=== PATIENT | male | born 1990 | race Caucasian/White ===

== ENCOUNTER 2020-01-06 15:26 | Emergency (ER) | payer OTHER ==
[~2020-01-06] VITALS: Ht 177.8 cm; Wt 83.9 kg
[2020-01-06 16:29] VITALS: BP 141/86
== END 2020-01-06 17:30 | disposition home or self-care (01) ==
LOC: ER 15:26
DX: S39.012A Strain of muscle, fascia and tendon of lower back, initial encounter (principal); W01.0XXA Fall on same level from slipping, tripping and stumbling without subsequent striking against object, initial encounter; Y93.89 Activity, other specified; Y92.89 Other specified places as the place of occurrence of the external cause; Y99.8 Other external cause status
CPT/HCPCS: 72100